=== PATIENT | female | born 1945 | race Caucasian/White ===

== ENCOUNTER 2021-03-28 15:04 | Inpatient (IN) | payer MEDICARE, OTHER ==
[2021-03-28] MEDS ORDERED: Nystatin Topical Powder 15 GM Bottle TOP PRN (16:09)
[2021-03-28] MEDS: Potassium Chloride 100 ML IV SCH (17:20)
[2021-03-28] MEDS: Lactated Ringers 1,000 ML IV SCH ×2 (17:20→23:37)
[2021-03-28] MEDS: Heparin Sodium 5,000 Units/ML Vial SUBCUT SCH (17:48)
[2021-03-28] MEDS: Potassium Chloride 10 MEQ Tab.ER PO SCH ×2 (17:50→20:45)
[2021-03-28] MEDS: rOPINIRole 1 MG Tab PO SCH ×2 (17:51→20:44)
[2021-03-28] MEDS: Carvedilol 6.25 MG Tab PO SCH (17:51)
[2021-03-28] MEDS: Ferrous Sulfate 325 MG Tab PO SCH (17:52)
[2021-03-28] MEDS: Gabapentin 100 MG Cap PO SCH (17:58)
--- NOTE | 2021-03-28 19:07 | HP ---
ADMISSION DATE: 03/28/2021 CHIEF COMPLAINT: Hypokalemia. HISTORY OF PRESENT ILLNESS: Ms. Martínez is a 76-year-old woman with history of mitral valvular heart disease, chronic seronegative inflammatory arthritis, gout, and ZENG. She has chronic lower extremity edema and has been treated with diuretics as an outpatient. This made her quite hypokalemic and in the office today, she was weak and had a potassium of 2.2. For this reason, she was sent over for acute admission and replenishment of her serum potassium. The patient denies any recent nausea, vomiting, diarrhea. She has had a low potassium before and has been on oral potassium pills. It is not clear how her compliance has been, however. PAST MEDICAL HISTORY: She has a history of mitral valve heart disease discovered first at the [facility] and followed with Cardiology in [place]. The last echocardiogram, November of 2020, showed normal left ventricular function with ejection fraction of 65%, moderate mitral regurg and stenosis and mild tricuspid regurgitation. She has a history of chronic anemia and recently underwent GI workup with negative EGD in February by Dr. Drew. She states she previously had negative colonoscopy. She is status post bilateral total knee arthroplasties, cholecystectomy. She is 3, para 3 with normal deliveries. MEDICATIONS: 1. Multiple vitamin 1 daily. 2. Iron 325 mg b.i.d. 3. Nystatin topical daily p.r.n. 4. Allopurinol 300 mg daily. 5. Aspirin 81 mg every 48 hours. 6. Carvedilol 6.25 mg b.i.d. 7. Lipitor 40 mg at bedtime. 8. Levothyroxine 150 mcg daily. 9. Furosemide 40 mg b.i.d. 10.Metolazone 2.5 mg Tuesdays and Fridays. 11.Omeprazole 40 mg daily. 12.Potassium 10 mEq q.i.d. 13.Oxybutynin 10 mg daily. 14.Requip 1 mg q.i.d. 15.Prednisone 2 mg daily. 16.Gabapentin 100 mg b.i.d. ALLERGIES: Cephalexin caused hives. HABITS: Nonsmoker and nondrinker. FAMILY AND SOCIAL HISTORY: The patient is since 1992. She lives at home with her son, Vikas, who is a quadriplegic. She also has additional care helping him out. 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 FAMILY MEDICAL HISTORY: The patient's father at age 65 of complications of diabetes. Mother lived to age 102. She has 1 brother in his 70s with diabetes and cancer. REVIEW OF SYSTEMS: GENERAL: No seizure, syncope, or recent significant weight change. PHYSICAL EXAMINATION: GENERAL: Weight at the clinic today was 204 pounds and back in June of 2020, she was 207 pounds. SKIN: Anicteric, warm, dry. She has deeply pigmented pereyra about her face and upper extremities. She also has bilateral upper extremity patches of vitiligo. She has been diagnosed with psoriasis in the past. I see no active areas. HEENT: Show TMs to be clear. Pupils are equal and reactive with bilateral arcus senilis. Oropharynx is clear with false teeth. Mouth dry. NECK: Supple. Thyroid is normal. Carotids are brisk without bruits. LUNGS: Clear to the bases. HEART: Regular with a 2/6 systolic murmur over the mitral area. ABDOMEN: Normal bowel sounds. Soft and nontender. No masses or organomegaly. EXTREMITIES: Show doughy thickening of both lower extremities with no pitting of her shins. She has intact pedal pulses. Motor exam appears symmetric. LABORATORY DATA: Done at the clinic today showed sodium 138, potassium 2.2, chloride 88, CO2 of 37. BUN 37, creatinine 1.13. AST 50, total bilirubin 4.2. ASSESSMENT: A 76-year-old woman with: 1. Severe hypokalemia. 2. Mild mitral valvular heart disease. 3. Chronic venous insufficiency with lower extremity edema. 4. Nonalcoholic steatohepatitis with rising liver enzymes. 5. History of gout. 6. Restless legs syndrome. 7. Pigmentation disorder. PLAN: We will follow routine labs, replace her potassium. Also plan CT abdomen because of the rising liver enzymes. I anticipate a 48- to 72-hour acute hospital stay followed by return to her home. We will provide palliative care measures for her underlying arthritic problems as well. /[id number] RO/MODL
[2021-03-28] MEDS: Aspirin 81 MG Tab.EC PO SCH (20:45)
[2021-03-28] MEDS: atorvaSTATin 40 MG Tab PO SCH (20:46)
[2021-03-28] MEDS ORDERED: Potassium Chloride 40 MEQ/20 ML SDV IV SCH (21:00)
[2021-03-29] MEDS: Heparin Sodium 5,000 Units/ML Vial SUBCUT SCH ×2 (06:40→17:03)
[2021-03-29] MEDS: Levothyroxine 150 MCG Tab PO SCH (06:40)
[2021-03-29] MEDS: Lactated Ringers 1,000 ML IV SCH ×2 (07:01→18:49)
[2021-03-29] MEDS: Ferrous Sulfate 325 MG Tab PO SCH ×2 (08:24→17:03)
[2021-03-29] MEDS: rOPINIRole 1 MG Tab PO SCH ×4 (08:25→20:36)
[2021-03-29] MEDS: Carvedilol 6.25 MG Tab PO SCH ×2 (08:25→17:00)
[2021-03-29] MEDS: Potassium Chloride 10 MEQ Tab.ER PO SCH ×4 (08:25→20:35)
[2021-03-29] MEDS: Oxybutynin 5 MG Tab.ER PO SCH (08:26)
[2021-03-29] MEDS: predniSONE 1 MG Tab PO SCH (08:26)
[2021-03-29] MEDS: Gabapentin 100 MG Cap PO SCH ×2 (08:28→17:06)
[2021-03-29] MEDS: Potassium Chloride 100 ML IV SCH ×3 (08:32→16:42)
[2021-03-29] MEDS ORDERED: Sulfamethoxazole/Trimethoprim 800-160 MG Tab PO SCH (09:00)
--- NOTE | 2021-03-29 10:22 | PN ---
DATE SEEN: 03/29/2021 HISTORY: Shima is a 76-year-old woman admitted from the clinic yesterday because of severe hypokalemia with potassium of 2.2. She was on diuretics for chronic peripheral edema, which is primarily venous stasis edema. Recent echocardiogram documented normal ventricular function. Laboratory studies showed her to have a hemoglobin of 11.1, MCV 102, potassium this morning up to 2.3 due to both oral and IV supplementation. PHYSICAL EXAMINATION: GENERAL: She is alert and comfortable this morning. HEENT: Mouth is dry. LUNGS: Have fine rales at the bases. HEART: Regular with a soft systolic murmur. ABDOMEN: Soft and nontender. EXTREMITIES: Showed thick doughy chronic changes of her legs. No significant pitting edema. LABORATORY DATA: Urinalysis showed hematuria. ASSESSMENT: 1. Severe hypokalemia secondary to diuretics. 2. Chronic venous stasis lower extremity edema. 3. History of inflammatory arthritis, seronegative. 4. History of gout. 5. Chronic mixed urinary incontinence. 6. Elevated liver enzymes. 7. Hematuria. PLAN: She will have CT of the abdomen and pelvis today to evaluate her elevated liver enzymes and her hematuria. We will continue her low-dose subcu heparin for DVT prophylaxis and continue to monitor platelets. I anticipate another 24 to 48 hours of acute hospital stay followed by return to home. /[id number] DELORIS/RENE
[2021-03-29] MEDS ORDERED: Iopamidol 755 Mg/ML 100 ML Bottle IV ONE (10:25)
[2021-03-29] MEDS ORDERED: cefTRIAXone 2 GM Vial IVPUSH SCH (12:00)
[2021-03-29] MEDS ORDERED: Azithromycin 500 MG Tab PO ONE (12:00)
--- NOTE | 2021-03-29 12:06 | CT ---
INDICATION: Elevated liver enzymes and hematuria. CT ABDOMEN AND PELVIS WITH CONTRAST: Spiral 3.75 mm axial sections were obtained through the abdomen and pelvis with 90 mL Isovue-370 at 2 mL/sec with sagittal and coronal reconstructions 03/29/21 and compared with 05/21/15. Total exam DLP was 930.79 milligray/cm. Bibasilar pleuroparenchymal changes are noted compatible with minimal bibasilar pneumonia and pleuritis. There may be some atelectasis also in those areas. The heart appears enlarged with mitral valvular/annular calcifications and some coronary artery calcifications suggested. No pericardial effusion was seen. The liver surface appears somewhat irregular. The liver density is heterogeneous in appearance raising question of cirrhosis of the liver. Enlarged spleen is noted measuring approximately 17 cm in maximum diameter and slightly increased in size compared with the previous examination. No definite focal liver or spleen mass was identified. The adrenal glands appeared normal. The kidneys appeared normal except to note impression on the left kidney by the enlarged spleen. The pancreas appeared normal except for what appears to be a cystic mass caudal to the distal body - tail of the pancreas and measuring approximately 19 mm. This may represent a pancreatic pseudocyst. It is visualized on multiple images including coronal image #39. The wall of the gastric antrum appears to be somewhat thickened raising question of peptic ulcer disease - correlate clinically. There remains a degree of fat stranding caudal to the cecum and extending mostly posteriorly, etiology is indeterminate. It may represent residua from previous peritonitis - correlate clinically. No definite bowel obstruction was identified. Arcuate artery, femoral, iliac, right renal, splenic, and aortic calcifications are noted. No evidence of abdominal aortic aneurysm was seen. No additional organomegaly, mass lesions, or free fluid collections were identified in the abdomen or pelvis. The urinary bladder was moderately distended and unremarkable otherwise. IMPRESSION: 1. Findings raise question of cirrhosis of the liver with splenomegaly noted. 2. ASD/ASHD. 3. Suggestion of thickening of the wall of the gastric antrum raising question of peptic ulcer disease - correlate clinically. 4. Peritoneal fat stranding in the paracolic gutter on the right inferior posterior to the cecum appears less prominent than on the previous study and may represent residua from previous peritonitis but should be correlated clinically. 5. Dextroconcave scoliosis thoracolumbar spine with somewhat progressive degenerative disc disease from L2 through S1. 6. Ventral hernia again noted and appears essentially unchanged at and below the level of the umbilicus. It is unchanged in size for the most part but does now have at its ostium a partial loop of transverse colon without obstruction. 7. Bibasilar pneumonia and pleuritis is noted. Report was called to Dr. Maldonado at 1134 hours 03/29/21. [facility]
[2021-03-29] MEDS: Piperacillin/Tazobactam 4.5 GM in Sodium Chloride 0.9% 100 ML IV SCH ×2 (12:13→18:49)
[2021-03-29] MEDS ORDERED: Azithromycin 500 MG in Sodium Chloride 0.9% 250 ML IV SCH (12:15)
[2021-03-29] MEDS: atorvaSTATin 40 MG Tab PO SCH (20:36)
[2021-03-30] MEDS: Piperacillin/Tazobactam 4.5 GM in Sodium Chloride 0.9% 100 ML IV SCH ×4 (00:23→17:43)
[2021-03-30] MEDS: Potassium Chloride 100 ML IV SCH ×2 (00:49→08:29)
[2021-03-30] MEDS: Sodium Chloride 0.9% 10 ML Syringe FLUSH PRN ×4 (00:50→12:09)
[2021-03-30] MEDS: Levothyroxine 150 MCG Tab PO SCH (05:50)
[2021-03-30] MEDS: Heparin Sodium 5,000 Units/ML Vial SUBCUT SCH ×2 (05:51→17:41)
[2021-03-30] MEDS ORDERED: Metolazone 2.5 MG Tab PO SCH (08:15)
[2021-03-30] MEDS: Carvedilol 6.25 MG Tab PO SCH ×2 (08:18→17:33)
[2021-03-30] MEDS: Ferrous Sulfate 325 MG Tab PO SCH ×2 (08:18→17:40)
[2021-03-30] MEDS: predniSONE 1 MG Tab PO SCH (08:20)
[2021-03-30] MEDS: rOPINIRole 1 MG Tab PO SCH ×4 (08:21→20:10)
[2021-03-30] MEDS: Potassium Chloride 20 MEQ Tab.ER PO SCH ×3 (08:25→20:10)
[2021-03-30] MEDS: Gabapentin 100 MG Cap PO SCH ×2 (08:25→18:03)
[2021-03-30] MEDS: Allopurinol 300 MG Tab PO SCH (08:26)
[2021-03-30] MEDS: Nystatin Topical Powder 15 GM Bottle TOP PRN (08:28)
[2021-03-30] MEDS: Furosemide 40 MG Tab PO SCH ×2 (10:04→14:26)
[2021-03-30] MEDS: Oxybutynin 5 MG Tab.ER PO SCH (10:05)
--- NOTE | 2021-03-30 11:22 | CR ---
INDICATION: Pneumonia. CHEST TWO VIEWS: PA and lateral views of the chest 03/30/21 were compared with 01/08/14 and 05/10/10. The heart appears to be somewhat increased in size but is emphasized by a slightly decreased inspiration. No specific chamber enlargement noted. The aorta is tortuous with calcification in the arch. Mild to moderate hypertrophic changes are noted in the mid to lower thoracic spine off vertebral bodies anteriorly. There is blunting of the left costophrenic angle with some increased density in that area - lower lobe on the left which may represent minimal pneumonia and pleuritis in that area. A very minimal pneumonia and pleuritis - less prominent than on the left - appears to be present now on the right with minimal blunting of the right costophrenic angle and possibly the posterior sulcus on the right also. However, no gross consolidating pneumonia or large effusion was seen. IMPRESSION: 1. Probable bibasilar pneumonia and pleuritis, left greater than right. 2. ASHD with mild cardiomegaly. 3. DJD spine. MTDD
[2021-03-30] MEDS: Azithromycin 250 MG Tab PO SCH (12:04)
--- NOTE | 2021-03-30 12:22 | PN ---
DATE SEEN: 03/30/2021 HISTORY: Ms. Martínez is a 76-year-old woman sent over from the clinic because of extreme hypokalemia. She had a history of longstanding chronic lower extremity edema and had been getting high dose of furosemide plus metolazone. She was mildly dehydrated on admission, weak, and fatigued. PAST SIGNIFICANT MEDICAL HISTORY: Includes mild valvular heart disease, but preserved ejection fraction at 65% with good ventricular function, a history of chronic anemia with negative GI workup, a history of seronegative inflammatory arthritis with gout, and a history of ZENG with cirrhosis, portal hypertension, and splenomegaly. The patient was admitted and started on IV potassium, supplementing her oral potassium. Her diuretics were held. Her initial weight was 176 pounds and she was febrile to 100.2 degrees. Urinalysis showed a UTI plus a hematuria. CT of the abdomen and pelvis was accomplished showing likely bibasilar pneumonia, the previous described cirrhosis with splenomegaly, benign-appearing pancreatic cyst, and unremarkable kidneys and bladder. Because of the pneumonia and urinary tract infection, she was started on antibiotics. She had an allergy to cephalexin, so Zosyn and azithromycin were chosen. She is examined this morning in her chair. She feels quite comfortable. She had a good night's sleep and she feels well. PHYSICAL EXAMINATION: VITAL SIGNS: Blood pressure 114/56, pulse 64 and regular, respirations 18, O2 sat 97% on room air, temp 97, weight 190 pounds. This sounds like her appropriate dry weight at home. MOUTH: Dry. LUNGS: Have fine rales at both bases. HEART: Regular without murmur or gallop. ABDOMEN: Soft and nontender. EXTREMITIES: Showed no significant edema at the ankles, but the chronic doughy thickened leg changes as before. LABORATORY DATA: White count 3000, hemoglobin 11.7, MCV 101. Sodium 137, potassium 3.2, BUN 24, creatinine 1.1. Total bilirubin 2.8, AST 46, ALT 20, alk phos 119, TSH 0.27, cortisol 9.2. ASSESSMENT: 1. Severe hypokalemia secondary to diuretics, improving. 2. Chronic peripheral edema, noncardiac, on long-term diuretic. 3. Nonalcoholic steatohepatitis with cirrhosis, portal hypertension, and splenomegaly. 4. Urinary tract infection. 5. Basilar infiltrate, possible pneumonia. 6. Seronegative inflammatory arthritis with history of gout. PLAN: She is currently on IV antibiotics. We will continue this through today and switch to p.o. antibiotic tomorrow. She is likely able to be discharged tomorrow. We will discontinue her IV potassium and continue the oral potassium supplementation. I will resume her furosemide at 40 mg daily. Her levothyroxine dose appears slightly high. I will not change this at this time. Plan, discharge within the next 24 to 48 hours. /[id number] DELORIS/RENE
[2021-03-30] MEDS: atorvaSTATin 40 MG Tab PO SCH (20:10)
[2021-03-30] MEDS: Aspirin 81 MG Tab.EC PO SCH (20:10)
[2021-03-31] MEDS: Levothyroxine 150 MCG Tab PO SCH (06:02)
[2021-03-31] MEDS: rOPINIRole 1 MG Tab PO SCH ×4 (08:16→20:42)
[2021-03-31] MEDS: Carvedilol 6.25 MG Tab PO SCH ×2 (08:17→18:10)
[2021-03-31] MEDS: Furosemide 40 MG Tab PO SCH ×2 (08:17→12:05)
[2021-03-31] MEDS: Allopurinol 300 MG Tab PO SCH (08:18)
[2021-03-31] MEDS: predniSONE 1 MG Tab PO SCH (08:20)
[2021-03-31] MEDS: Potassium Chloride 20 MEQ Tab.ER PO SCH ×3 (08:20→20:42)
[2021-03-31] MEDS: Oxybutynin 5 MG Tab.ER PO SCH (08:22)
[2021-03-31] MEDS: Ferrous Sulfate 325 MG Tab PO SCH ×2 (08:22→18:08)
[2021-03-31] MEDS: Gabapentin 100 MG Cap PO SCH ×2 (08:29→18:18)
[2021-03-31] MEDS: Heparin Sodium 5,000 Units/ML Vial SUBCUT SCH ×2 (08:57→18:09)
[2021-03-31] MEDS: Amoxicillin/Clavulanate K 875-125 MG Tab PO SCH ×2 (08:57→20:42)
[2021-03-31] MEDS: Nystatin Topical Powder 15 GM Bottle TOP PRN (09:50)
[2021-03-31] MEDS: Lactobacillus Rhamnosus GG (Probiotic) Cap PO SCH (10:44)
[2021-03-31] MEDS: Azithromycin 250 MG Tab PO SCH (12:05)
[2021-03-31] MEDS ORDERED: Potassium Chloride 20 MEQ Tab.ER PO ONE (14:00)
--- NOTE | 2021-03-31 14:22 | PCM.PN ---
- General Info Date of Service: 03/31/21 Subjective Update: Shima having loose stools since admission, switched from Zosyn to Augmentin. UC showed E. coli pansensitive. She states feels better. No chest pain, palpitations. No abdominal pain, nausea or vomiting. - Patient Data Vitals - Most Recent: Last Vital Signs Temp 97.9 F 03/31/21 08:00 Pulse 70 03/31/21 08:17 Resp 16 03/31/21 08:00 BP 104/69 03/31/21 08:17 Pulse Ox 96 03/31/21 08:00 Weight - Most Recent: 187 lb 1 oz I&O - Last 24 Hours: Intake & Output 03/30/21 03/31/21 03/31/21 22:59 06:59 14:59 Intake Total 200 Balance 200 Lab Results Last 24 Hours: Laboratory Results - last 24 hr 03/31/21 03/31/21 Range/Units 06:10 09:38 Sodium 139 (135-145) mmol/L Potassium 3.2 L (3.5-5.3) mmol/L Chloride 100 (100-110) mmol/L Carbon Dioxide 32 (21-32) mmol/L BUN 19 H (7-18) mg/dL Creatinine 1.2 H (0.55-1.02) mg/dL Est Cr Clr Drug Dosing 34.02 mL/min Estimated GFR (MDRD) 44 L (>60) BUN/Creatinine Ratio 15.8 (9-20) Glucose 196 H D (80-116) mg/dL Calcium 8.4 L (8.6-10.2) mg/dL Urine Color Yellow (YELLOW) Urine Appearance Clear (CLEAR) Urine pH 7.0 H (5.0-6.5) Ur Specific Leon 1.000 L (1.010-1.025) Urine Protein Negative (NEGATIVE) mg/dL Urine Glucose (UA) Normal (NORMAL) mg/dL Urine Ketones Negative (NEGATIVE) mg/dL Urine Occult Blood Negative (NEGATIVE) Urine Nitrite Negative (NEGATIVE) Urine Bilirubin Negative (NEGATIVE) Urine Urobilinogen 4 H (NEGATIVE) mg/dL Ur Leukocyte Esterase Negative (NEGATIVE) Urine RBC 0-5 (0-5) Urine WBC 0-5 (0-5) Ur Squamous Epith Cells Few H (NS,R,O) Urine Bacteria Few H (NS) Raymond Results Last 24 Hours: Microbiology 03/29/21 05:30 Urine Culture - Final Urine, Voided Escherichia Coli Med Orders - Current: Current Medications Allopurinol (Allopurinol 300 Mg Tab) 300 mg PO DAILY [facility] Last Admin: 03/31/21 08:18 Dose: 300 mg Documented by: Amoxicillin/Clavulanate Potassium (Amoxicillin/Clavulanate K 875-125 Mg Tab) 1 tab PO Q12H [facility] Last Admin: 03/31/21 08:57 Dose: 1 tab Documented by: Aspirin (Aspirin 81 Mg Tab.Ec) 81 mg PO Q48H [facility] Last Admin: 03/30/21 20:10 Dose: 81 mg Documented by: Atorvastatin Calcium (Atorvastatin 40 Mg Tab) 40 mg PO BEDTIME [facility] Last Admin: 03/30/21 20:10 Dose: 40 mg Documented by: Azithromycin (Azithromycin 250 Mg Tab) 250 mg PO DAILY@1200 [facility] Stop: 04/02/21 12:01 Last Admin: 03/31/21 12:05 Dose: 250 mg Documented by: Carvedilol (Carvedilol 6.25 Mg Tab) 6.25 mg PO BIDMEALS [facility] Last Admin: 03/31/21 08:17 Dose: 6.25 mg Documented by: Ferrous Sulfate (Ferrous Sulfate 325 Mg Tab) 325 mg PO BIDMEALS [facility] Last Admin: 03/31/21 08:22 Dose: 325 mg Documented by: Furosemide (Furosemide 40 Mg Tab) 40 mg PO DAILY@08,12 [facility] Last Admin: 03/31/21 12:05 Dose: 40 mg Documented by: Gabapentin (Gabapentin 100 Mg Cap) 100 mg PO BID@ [facility] Last Admin: 03/31/21 08:29 Dose: 100 mg Documented by: Heparin Sodium (Porcine) (Heparin Sodium 5,000 Units/Ml Vial) 5,000 units SUBCUT Q12H [facility] Last Admin: 03/31/21 08:57 Dose: 5,000 units Documented by: Lactobacillus Rhamnosus (Lactobacillus Rhamnosus Gg (Probiotic) Cap) 1 cap PO DAILY [facility] Last Admin: 03/31/21 10:44 Dose: 1 cap Documented by: Levothyroxine Sodium (Levothyroxine 150 Mcg Tab) 150 mcg PO DAILY@0600 [facility] Last Admin: 03/31/21 06:02 Dose: 150 mcg Documented by: Metolazone (Metolazone 2.5 Mg Tab) 2.5 mg PO TH [facility] Last Admin: 03/30/21 08:26 Dose: 2.5 mg Documented by: Nystatin (Nystatin Topical Powder 15 Gm Bottle) 0 gm TOP DAILY PRN PRN Reason: Rash Last Admin: 03/31/21 09:50 Dose: 1 applic Documented by: Oxybutynin Chloride (Oxybutynin 5 Mg Tab.Er) 10 mg PO DAILY [facility] Last Admin: 03/31/21 08:22 Dose: 10 mg Documented by: Potassium Chloride (Potassium Chloride 20 Meq Tab.Er) 20 meq PO TID [facility] Last Admin: 03/31/21 14:02 Dose: 20 meq Documented by: Prednisone (Prednisone 1 Mg Tab) 2 mg PO DAILY [facility] Last Admin: 03/31/21 08:20 Dose: 2 mg Documented by: Ropinirole HCl (Ropinirole 1 Mg Tab) 1 mg PO QID [facility] Last Admin: 03/31/21 12:24 Dose: 1 mg Documented by: Sodium Chloride (Sodium Chloride 0.9% 10 Ml Syringe) 10 ml FLUSH ASDIRECTED PRN PRN Reason: Keep Vein Open Last Admin: 03/30/21 12:09 Dose: 10 ml Documented by: Discontinued Medications Azithromycin (Azithromycin 500 Mg Tab) 500 mg PO ONETIME ONE Stop: 03/29/21 12:01 Last Admin: 03/29/21 12:13 Dose: 500 mg Documented by: Lactated Ringer's (Ringers, Lactated) 1,000 mls @ 75 mls/hr IV ASDIRECTED [facility] Last Admin: 03/29/21 18:49 Dose: 75 mls/hr Documented by: Potassium Chloride (Kcl In Water 20 Meq/100 Ml) 100 mls @ 50 mls/hr IV Q8H [facility] Stop: 03/30/21 12:00 Last Admin: 03/30/21 08:29 Dose: 50 mls/hr Documented by: Piperacillin Sod/Tazobactam (Sod 4.5 gm/ Sodium Chloride) 100 mls @ 200 mls/hr IV Q6H [facility] Stop: 03/30/21 23:59 Last Admin: 03/30/21 17:43 Dose: 200 mls/hr Documented by: Iopamidol (Iopamidol 755 Mg/Ml 100 Ml Bottle) 90 ml IV . DIRECTED ONE Stop: 03/29/21 10:26 Last Admin: 03/29/21 10:50 Dose: 90 ml Documented by: Nystatin (Nystatin Topical Powder 15 Gm Bottle) 0 gm TOP DAILY PRN PRN Reason: Rash Last Admin: 03/29/21 20:37 Dose: 1 applic Documented by: Potassium Chloride (Potassium Chloride 10 Meq Tab.Er) 10 meq PO QID [facility] Last Admin: 03/29/21 20:35 Dose: 10 meq Documented by: Potassium Chloride (Potassium Chloride 20 Meq Tab.Er) 20 meq PO ONETIME ONE Stop: 03/31/21 14:01 Last Admin: 03/31/21 14:01 Dose: 20 meq Documented by: Trimethoprim/Sulfamethoxazole (Sulfamethoxazole/Trimethoprim 800-160 Mg Tab) 1 tab PO BID [facility] Stop: 03/31/21 21:01 Last Admin: 03/29/21 08:25 Dose: 1 tab Documented by: - Exam General: Alert, Oriented, Cooperative Lungs: Clear to Auscultation, Normal Respiratory Effort, Decreased Breath Sounds (bases). No: Crackles Cardiovascular: Regular Rate, Regular Rhythm, No Murmurs GI/Abdominal Exam: Soft, Non-Tender, No Distention, Abnormal Bowel Sounds (hyperactive x4) Extremities: Pedal Edema (trace) Peripheral Pulses: 2+: Radial (L), Radial (R) - Patient Data Lab Results Last 24 hrs: Laboratory Results - last 24 hr 03/31/21 03/31/21 Range/Units 06:10 09:38 Sodium 139 (135-145) mmol/L Potassium 3.2 L (3.5-5.3) mmol/L Chloride 100 (100-110) mmol/L Carbon Dioxide 32 (21-32) mmol/L BUN 19 H (7-18) mg/dL Creatinine 1.2 H (0.55-1.02) mg/dL Est Cr Clr Drug Dosing 34.02 mL/min Estimated GFR (MDRD) 44 L (>60) BUN/Creatinine Ratio 15.8 (9-20) Glucose 196 H D (80-116) mg/dL Calcium 8.4 L (8.6-10.2) mg/dL Urine Color Yellow (YELLOW) Urine Appearance Clear (CLEAR) Urine pH 7.0 H (5.0-6.5) Ur Specific Leon 1.000 L (1.010-1.025) Urine Protein Negative (NEGATIVE) mg/dL Urine Glucose (UA) Normal (NORMAL) mg/dL Urine Ketones Negative (NEGATIVE) mg/dL Urine Occult Blood Negative (NEGATIVE) Urine Nitrite Negative (NEGATIVE) Urine Bilirubin Negative (NEGATIVE) Urine Urobilinogen 4 H (NEGATIVE) mg/dL Ur Leukocyte Esterase Negative (NEGATIVE) Urine RBC 0-5 (0-5) Urine WBC 0-5 (0-5) Ur Squamous Epith Cells Few H (NS,R,O) Urine Bacteria Few H (NS) Result Diagrams: 03/30/21 06:10 03/31/21 09:38 Raymond Results Last 24 hrs: Microbiology 03/29/21 05:30 Urine Culture - Final Urine, Voided Escherichia Coli Sepsis Event Note - Evaluation Sepsis Screening Result: No Definite Risk - Focused Exam Vital Signs: Vital Signs Temp Pulse Pulse Resp BP BP BP 03/31/21 08:17 70 104/69 03/31/21 08:00 97.9 F 70 16 104/69 03/31/21 02:30 97.9 F 65 16 110/53 L Pulse Ox 03/31/21 08:17 03/31/21 08:00 96 03/31/21 02:30 95 - Problem List & Annotations (1) UTI (urinary tract infection) SNOMED Code(s): 10523019 Code(s): N39.0 - URINARY TRACT INFECTION, SITE NOT SPECIFIED Status: Acute Current Visit: Yes Qualifiers: Urinary tract infection type: acute cystitis (2) Hypokalemia SNOMED Code(s): 92873740 Code(s): E87.6 - HYPOKALEMIA Status: Acute Current Visit: Yes (3) Edema, peripheral SNOMED Code(s): 963461490 Code(s): R60.9 - EDEMA, UNSPECIFIED Status: Acute Current Visit: Yes (4) Pulmonary infiltrates SNOMED Code(s): 011937947 Code(s): R91.8 - OTHER NONSPECIFIC ABNORMAL FINDING OF LUNG FIELD Status: Acute Current Visit: Yes (5) Nonalcoholic steatohepatitis (ZENG) SNOMED Code(s): 893795920 Code(s): K75.81 - NONALCOHOLIC STEATOHEPATITIS (ZENG) Status: Chronic Current Visit: Yes (6) Seronegative arthritis SNOMED Code(s): 771155655 Code(s): M13.80 - OTHER SPECIFIED ARTHRITIS, UNSPECIFIED SITE Status: Chronic Current Visit: Yes (7) 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 UTI/bibasilar infiltrates: Zosyn x 6 doses, switched to Augmentin 875/125 mg today. Azithromycin 250 mg x 3 doses so far. UC grew E. coli pansensitive, allergy to Cephalexin(rash). She has been tolerating the Zosyn since admission. Has 2 more doses of Azithromycin and would need 6 doses of Augmentin to complete antibiotic course. 2. Hypokalemia: repeat 3.2 today, already getting KCL 20mEQ tid, add onetime dose of 20 mEQ this afternoon. Repeat BMP in am. Check magnesium on blood draw from am. Metolazone changed to 2.5 mg weekly on , received yesterday. 3. Antibiotic-associated diarrhea: Probiotics bid. 4. Anticipate discharge tomorrow.
[2021-03-31] MEDS: atorvaSTATin 40 MG Tab PO SCH (20:42)
[2021-03-31] MEDS ORDERED: Magnesium Oxide 400 MG Tab PO SCH (21:00)
[2021-04-01] MEDS: Heparin Sodium 5,000 Units/ML Vial SUBCUT SCH (05:42)
[2021-04-01] MEDS: Levothyroxine 150 MCG Tab PO SCH (05:42)
[2021-04-01 08:38] VITALS: BP 122/55; PULSE 64
[2021-04-01] MEDS: Oxybutynin 5 MG Tab.ER PO SCH (08:40)
[2021-04-01] MEDS: predniSONE 1 MG Tab PO SCH (08:40)
[2021-04-01] MEDS: Allopurinol 300 MG Tab PO SCH (08:40)
[2021-04-01] MEDS: Furosemide 40 MG Tab PO SCH (08:41)
[2021-04-01] MEDS: Potassium Chloride 20 MEQ Tab.ER PO SCH (08:41)
[2021-04-01] MEDS: Lactobacillus Rhamnosus GG (Probiotic) Cap PO SCH (08:41)
[2021-04-01] MEDS: Amoxicillin/Clavulanate K 875-125 MG Tab PO SCH (08:42)
[2021-04-01] MEDS: Nystatin Topical Powder 15 GM Bottle TOP PRN (08:42)
[2021-04-01] MEDS: Carvedilol 6.25 MG Tab PO SCH (08:43)
[2021-04-01] MEDS: Ferrous Sulfate 325 MG Tab PO SCH (08:43)
[2021-04-01] MEDS: rOPINIRole 1 MG Tab PO SCH (08:44)
[2021-04-01] MEDS: Gabapentin 100 MG Cap PO SCH (08:47)
[2021-04-01] MEDS: Azithromycin 250 MG Tab PO SCH (11:57)
--- NOTE | 2021-04-01 15:30 | PCM.DCSUM1 ---
Discharge Summary - Hospital Course HPI Initial Comments: Shima was direct admission from clinic for hypokalemia 2.2, and weakness. She is on chronic diuretics for chronic peripheral edema. History of ZENG with cirrhosis and splenomegaly. No nausea, vomiting or diarrhea on admission. History of moderate mitral valve stenosis/regurgitation. Nov 2020 ECHO EF 65%. Takes potassium 10 mEq qid normally at home, on Lasix 40 mg daily & metolazone 2.5 MWF. See H&P for further details. Diagnosis: Stroke: No - Discharge Data Discharge Date: 04/01/21 Discharge Disposition: Home, Self-Care 01 Condition: Good - Referral to Home Health Primary Care Physician: Fawad Freed MD - Discharge Diagnosis/Problem(s) (1) UTI (urinary tract infection) SNOMED Code(s): 18870431 ICD Code: N39.0 - URINARY TRACT INFECTION, SITE NOT SPECIFIED Status: Acute Current Visit: Yes Qualifiers: Urinary tract infection type: acute cystitis (2) Hypokalemia SNOMED Code(s): 63754233 ICD Code: E87.6 - HYPOKALEMIA Status: Acute Current Visit: Yes (3) Edema, peripheral SNOMED Code(s): 153020262 ICD Code: R60.9 - EDEMA, UNSPECIFIED Status: Acute Current Visit: Yes (4) Pulmonary infiltrates SNOMED Code(s): 991514194 ICD Code: R91.8 - OTHER NONSPECIFIC ABNORMAL FINDING OF LUNG FIELD Status: Acute Current Visit: Yes (5) Nonalcoholic steatohepatitis (ZENG) SNOMED Code(s): 573758543 ICD Code: K75.81 - NONALCOHOLIC STEATOHEPATITIS (ZENG) Status: Chronic Current Visit: Yes (6) Seronegative arthritis SNOMED Code(s): 404760230 ICD Code: M13.80 - OTHER SPECIFIED ARTHRITIS, UNSPECIFIED SITE Status: Chronic Current Visit: Yes (7) 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 UTI on admission, initially started on Bactrim x [address] abdomen/pelvis showed bibasilar pneumonia with previous cirrhosis with splenomegaly, benign appearing pancreatic cyst. Started on Zosyn x 6 doses, Azithromycin 500 mg x 1 dose then 250 mg x 3 doses for bibasilar pneumonia. Mild dehydration on admission, given IV fluids until 03/29 and Lasix restarted on 03/30. Metolazone 2.5 mg changed to weekly dosing on , received dose on 03/30. Urine culture grew E. coli, pansensitive. Has Cephalexin allergy which was rash. She was switched to Augmentin on 03/31, started having diarrhea, secondary to antibiotics. Probiotics started, Potassium dropped to 3.0. Magnesium 1.6, magnesium 400 mg x 1 given. Diarrhea improved at discharge. Increased home dose of potassium 20 mEq qid for next 2 days, recheck on Saturday and Dr Freed may adjust as needed. - Patient Instructions Diet: Usual Diet as Tolerated Activity: As Tolerated Driving: May Drive Today Showering/Bathing: May Shower Notify Provider of: Fever, Increased Pain, Nausea and/or Vomiting Other/Special Instructions: Increase your potassium dose to 2 tab 4 times a day for next 2 days(Sat/Sun) then go back to your usual home dose. Follow up with Dr Freed on Saturday for hospital recheck and to recheck your potassium level. Take antibiotics as prescribed until finished. - Discharge Plan *PRESCRIPTION DRUG MONITORING PROGRAM REVIEWED*: Not Applicable *COPY OF PRESCRIPTION DRUG MONITORING REPORT IN PATIENT VASYL: Not Applicable Prescriptions/Med Rec: Amoxicillin/Clavulanate K [Augmentin 875-125 MG] 1 tab PO Q12H 2 Days #4 tablet Lactobacillus Rhamnosus GG [Culturelle] 1 cap PO BID 2 Days #4 cap Azithromycin [Zithromax] 250 mg PO DAILY@1200 2 Days #2 tablet Home Medications: Home Meds Levothyroxine 150 mcg PO ACBREAKFAST 03/02/15 [History] Furosemide 40 mg PO DAILY@08,12 08/11/15 [History] Aspirin [Halfprin] 81 mg PO Q48H 03/28/21 [History] Ferrous Sulfate 325 mg PO BIDMEALS 03/28/21 [History] Gabapentin [Neurontin] 100 mg PO BID@,18 03/28/21 [History] Multivitamin [Daily [place]] 1 tab PO DAILY 03/28/21 [History] Nystatin 1 applic TOP DAILY PRN 03/28/21 [History] Omeprazole 40 mg PO DAILY 03/28/21 [History] Oxybutynin Chloride [Ditropan Xl] 10 mg PO DAILY 03/28/21 [History] allopurinoL [Zyloprim] 300 mg PO DAILY 03/28/21 [History] atorvaSTATin [Lipitor] 40 mg PO BEDTIME 03/28/21 [History] carvediloL [Coreg] 6.25 mg PO BIDMEALS 03/28/21 [History] predniSONE [Prednisone] 2 mg PO DAILY 03/28/21 [History] rOPINIRole [Requip] 1 mg PO QID 03/28/21 [History] Amoxicillin/Clavulanate K [Augmentin 875-125 MG] 1 tab PO Q12H 2 Days #4 tablet 04/01/21 [Rx] Azithromycin [Zithromax] 250 mg PO DAILY@1200 2 Days #2 tablet 04/01/21 [Rx] Lactobacillus Rhamnosus GG [Culturelle] 1 cap PO BID 2 Days #4 cap 04/01/21 [Rx] Potassium Chloride 10 meq PO QID #0 04/01/21 [Rx] metOLazone [Zaroxolyn] 2.5 mg PO TH #0 tablet 04/01/21 [Rx] Patient Handouts: Heart Failure, Self Care, [id number], How to Use an Incentive Spirometer, Hypokalemia, Fall Prevention in Hospitals, Adult, Venous Thromboembolism Prevention Referrals: Fawad Freed MD [Primary Care Provider] - - Discharge Summary/Plan Comment DC Time >30 min.: No - General Info Date of Service: 04/01/21 Subjective Update: Shima states feeling better, diarrhea is improving mostly soft not as loose. Feels stronger. No shortness of breath or chest pain. No nausea, vomiting. Edema is about the same. - Patient Data Vitals - Most Recent: Last Vital Signs Temp 97.9 F 04/01/21 08:00 Pulse 64 04/01/21 08:43 Resp 16 04/01/21 08:00 BP 122/55 L 04/01/21 08:43 Pulse Ox 96 04/01/21 08:00 Weight - Most Recent: 187 lb 8 oz Lab Results - Last 24 hrs: Laboratory Results - last 24 hr 03/31/21 04/01/21 Range/Units 09:38 06:15 Sodium 139 (135-145) mmol/L Potassium 3.0 L (3.5-5.3) mmol/L Chloride 100 (100-110) mmol/L Carbon Dioxide 33 H (21-32) mmol/L BUN 18 (7-18) mg/dL Creatinine 1.0 (0.55-1.02) mg/dL Est Cr Clr Drug Dosing 40.83 mL/min Estimated GFR (MDRD) 54 L (>60) BUN/Creatinine Ratio 18.0 (9-20) Glucose 93 D (80-116) mg/dL Calcium 8.1 L (8.6-10.2) mg/dL Magnesium 1.6 L (1.8-2.5) mg/dL Med Orders - Current: Current Medications Discontinued Medications Allopurinol (Allopurinol 300 Mg Tab) 300 mg PO DAILY [facility] Last Admin: 04/01/21 08:40 Dose: 300 mg Documented by: Amoxicillin/Clavulanate Potassium (Amoxicillin/Clavulanate K 875-125 Mg Tab) 1 tab PO Q12H [facility] Last Admin: 04/01/21 08:42 Dose: 1 tab Documented by: Aspirin (Aspirin 81 Mg Tab.Ec) 81 mg PO Q48H [facility] Last Admin: 03/30/21 20:10 Dose: 81 mg Documented by: Atorvastatin Calcium (Atorvastatin 40 Mg Tab) 40 mg PO BEDTIME [facility] Last Admin: 03/31/21 20:42 Dose: 40 mg Documented by: Azithromycin (Azithromycin 500 Mg Tab) 500 mg PO ONETIME ONE Stop: 03/29/21 12:01 Last Admin: 03/29/21 12:13 Dose: 500 mg Documented by: Azithromycin (Azithromycin 250 Mg Tab) 250 mg PO DAILY@1200 [facility] Stop: 04/02/21 12:01 Last Admin: 04/01/21 11:57 Dose: 250 mg Documented by: Carvedilol (Carvedilol 6.25 Mg Tab) 6.25 mg PO BIDMEALS [facility] Last Admin: 04/01/21 08:43 Dose: 6.25 mg Documented by: Ferrous Sulfate (Ferrous Sulfate 325 Mg Tab) 325 mg PO BIDMEALS [facility] Last Admin: 04/01/21 08:43 Dose: 325 mg Documented by: Furosemide (Furosemide 40 Mg Tab) 40 mg PO DAILY@,12 [facility] Last Admin: 04/01/21 08:41 Dose: 40 mg Documented by: Gabapentin (Gabapentin 100 Mg Cap) 100 mg PO BID@ [facility] Last Admin: 04/01/21 08:47 Dose: 100 mg Documented by: Heparin Sodium (Porcine) (Heparin Sodium 5,000 Units/Ml Vial) 5,000 units SUBCUT Q12H [facility] Last Admin: 04/01/21 05:42 Dose: 5,000 units Documented by: Lactated Ringer's (Ringers, Lactated) 1,000 mls @ 75 mls/hr IV ASDIRECTED [facility] Last Admin: 03/29/21 18:49 Dose: 75 mls/hr Documented by: Potassium Chloride (Kcl In Water 20 Meq/100 Ml) 100 mls @ 50 mls/hr IV Q8H [facility] Stop: 03/30/21 12:00 Last Admin: 03/30/21 08:29 Dose: 50 mls/hr Documented by: Piperacillin Sod/Tazobactam (Sod 4.5 gm/ Sodium Chloride) 100 mls @ 200 mls/hr IV Q6H [facility] Stop: 03/30/21 23:59 Last Admin: 03/30/21 17:43 Dose: 200 mls/hr Documented by: Iopamidol (Iopamidol 755 Mg/Ml 100 Ml Bottle) 90 ml IV . DIRECTED ONE Stop: 03/29/21 10:26 Last Admin: 03/29/21 10:50 Dose: 90 ml Documented by: Lactobacillus Rhamnosus (Lactobacillus Rhamnosus Gg (Probiotic) Cap) 1 cap PO DAILY [facility] Last Admin: 04/01/21 08:41 Dose: 1 cap Documented by: Levothyroxine Sodium (Levothyroxine 150 Mcg Tab) 150 mcg PO DAILY@0600 [facility] Last Admin: 04/01/21 05:42 Dose: 150 mcg Documented by: Magnesium Oxide (Magnesium Oxide 400 Mg Tab) 400 mg PO BEDTIME [facility] Last Admin: 03/31/21 20:42 Dose: 400 mg Documented by: Metolazone (Metolazone 2.5 Mg Tab) 2.5 mg PO TH [facility] Last Admin: 03/30/21 08:26 Dose: 2.5 mg Documented by: Nystatin (Nystatin Topical Powder 15 Gm Bottle) 0 gm TOP DAILY PRN PRN Reason: Rash Last Admin: 03/29/21 20:37 Dose: 1 applic Documented by: Nystatin (Nystatin Topical Powder 15 Gm Bottle) 0 gm TOP DAILY PRN PRN Reason: Rash Last Admin: 04/01/21 08:42 Dose: 1 applic Documented by: Oxybutynin Chloride (Oxybutynin 5 Mg Tab.Er) 10 mg PO DAILY [facility] Last Admin: 04/01/21 08:40 Dose: 10 mg Documented by: Potassium Chloride (Potassium Chloride 10 Meq Tab.Er) 10 meq PO QID [facility] Last Admin: 03/29/21 20:35 Dose: 10 meq Documented by: Potassium Chloride (Potassium Chloride 20 Meq Tab.Er) 20 meq PO TID [facility] Last Admin: 04/01/21 08:41 Dose: 20 meq Documented by: Potassium Chloride (Potassium Chloride 20 Meq Tab.Er) 20 meq PO ONETIME ONE Stop: 03/31/21 14:01 Last Admin: 03/31/21 14:01 Dose: 20 meq Documented by: Prednisone (Prednisone 1 Mg Tab) 2 mg PO DAILY [facility] Last Admin: 04/01/21 08:40 Dose: 2 mg Documented by: Ropinirole HCl (Ropinirole 1 Mg Tab) 1 mg PO QID [facility] Last Admin: 04/01/21 08:44 Dose: 1 mg Documented by: Sodium Chloride (Sodium Chloride 0.9% 10 Ml Syringe) 10 ml FLUSH ASDIRECTED PRN PRN Reason: Keep Vein Open Last Admin: 03/30/21 12:09 Dose: 10 ml Documented by: Trimethoprim/Sulfamethoxazole (Sulfamethoxazole/Trimethoprim 800-160 Mg Tab) 1 tab PO BID [facility] Stop: 03/31/21 21:01 Last Admin: 03/29/21 08:25 Dose: 1 tab Documented by: - Exam General: Reports: Alert, Oriented, Cooperative, No Acute Distress Lungs: Reports: Clear to Auscultation, Normal Respiratory Effort, Decreased Breath Sounds (bibasilar), Crackles (occasional bibasilar). Denies: Wheezing Cardiovascular: Reports: Regular Rate, Regular Rhythm, Murmurs GI/Abdominal Exam: Normal Bowel Sounds, Soft, Non-Tender, No Distention Extremities: Pedal Edema (2+ BLE)
== END 2021-04-01 12:05 | disposition home or self-care (01) | DRG 640 ==
LOC: FB.MS 15:29
PROVIDERS: ADMIT Family Medicine; ATTEND Family Medicine
DX: E87.6 Hypokalemia (principal); J18.9 Pneumonia, unspecified organism; N30.00 Acute cystitis without hematuria; K52.1 Toxic gastroenteritis and colitis; K76.6 Portal hypertension; K75.81 Nonalcoholic steatohepatitis (NASH); M13.80 Other specified arthritis, unspecified site; K74.60 Unspecified cirrhosis of liver; I87.2 Venous insufficiency (chronic) (peripheral); G25.81 Restless legs syndrome; L81.9 Disorder of pigmentation, unspecified; I08.1 Rheumatic disorders of both mitral and tricuspid valves; B96.20 Unspecified Escherichia coli [E. coli] as the cause of diseases classified elsewhere; D64.9 Anemia, unspecified; T36.95XA Adverse effect of unspecified systemic antibiotic, initial encounter; Z90.49 Acquired absence of other specified parts of digestive tract; Z88.1 Allergy status to other antibiotic agents; Z79.890 Hormone replacement therapy; Z79.82 Long term (current) use of aspirin; Z79.899 Other long term (current) drug therapy
CPT/HCPCS: 36415; 71046; 74177; 80048; 80053; 81001; 82533; 82607; 83735; 84443; 85025; 87086; 87088; 87186; 94150; A9270-GY; J1644; J2543; J3480; J7120; J7512; Q9967

== ENCOUNTER 2021-06-29 21:39 | Emergency (ER) | payer MEDICARE, OTHER ==
[2021-06-29] MEDS ORDERED: Potassium Chloride 20 MEQ Tab.ER PO STA (22:15)
--- NOTE | 2021-06-29 22:19 | EDM.PDOC ---
ED HPI GENERAL MEDICAL PROBLEM - General Chief Complaint: General Stated Complaint: POSS LOW POTASSIUM Time Seen by Provider: 06/29/21 21:55 Source of Information: Reports: Patient History Limitations: Reports: No Limitations - History of Present Illness INITIAL COMMENTS - FREE TEXT/NARRATIVE: Patient presented to the ED ecause she is not feeling right which started at about 1130 today. When I asked her what she meant she can't elaborate. Per old MR she was here sometime in March with hypokalemia and hypomagnesemia. She denies having any palpitations, chest pain, N/V/D. - Related Data Allergies Allergy/AdvReac Type Severity Reaction Status Date / Time cephalexin [Cephalexin] Allergy Hives Verified 06/30/21 00:58 Home Meds: Home Meds Levothyroxine 150 mcg PO ACBREAKFAST 03/02/15 [History] Furosemide 40 mg PO DAILY@08,12 08/11/15 [History] Aspirin [Halfprin] 81 mg PO Q48H 03/28/21 [History] Ferrous Sulfate 325 mg PO BIDMEALS 03/28/21 [History] Multivitamin with Folic Acid [Daily-Sharon Tablet] 1 tab PO DAILY 03/28/21 [History] Omeprazole 40 mg PO DAILY 03/28/21 [History] Oxybutynin Chloride [Ditropan Xl] 10 mg PO DAILY 03/28/21 [History] allopurinoL [Zyloprim] 300 mg PO DAILY 03/28/21 [History] atorvaSTATin [Lipitor] 40 mg PO BEDTIME 03/28/21 [History] carvediloL [Coreg] 6.25 mg PO BIDMEALS 03/28/21 [History] rOPINIRole [Requip] 1 mg PO QID 03/28/21 [History] Magnesium Oxide 400 mg PO BID #15 tab 06/29/21 [Rx] Potassium Chloride 20 meq PO TID 06/30/21 [History] Spironolactone 50 mg PO MOWEFR 06/30/21 [History] metOLazone [Metolazone] 2.5 mg PO MOWEFR 06/30/21 [History] Past Medical History HEENT History: Reports: Cataract, Epistaxis, Impaired Vision Cardiovascular History: Reports: Heart Failure, Heart Murmur, Hypertension, SOB on Exertion, Other (See Below) Other Cardiovascular History: HR IRREGULAR. Respiratory History: Reports: SOB Other Respiratory History: CURRENTLY. 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 ANKLES GOUT HISTORY. Endocrine/Metabolic History: Reports: Hypokalemia, Hypothyroidism, Obesity/BMI 30+ Hematologic History: Reports: Anemia, Blood Transfusion(s) Other Hematologic History: IN PAST HAD BLOOD WITH NO REACTIONS. 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 NO NAME FOR THIS. HAS HAD FOR YEARS. - Infectious Disease History Infectious Disease History: Reports: Chicken Pox, Measles - Past Surgical History HEENT Surgical History: Reports: Cataract Surgery Cardiovascular Surgical History: Reports: None Respiratory Surgical History: Reports: None GI Surgical History: Reports: Cholecystectomy, Colonoscopy, EGD Endocrine Surgical History: Reports: None Musculoskeletal Surgical History: Reports: Knee Replacement, Other (See Below) Other Musculoskeletal Surgeries/Procedures:: BOTH DONE Dermatological Surgical History: Reports: None Social & Family History - Family History Family Medical History: Unobtainable - Caffeine Use Caffeine Use: Reports: Coffee ED ROS GENERAL - Review of Systems Review Of Systems: See Below Constitutional: Reports: No Symptoms HEENT: Reports: No Symptoms Respiratory: Reports: No Symptoms Cardiovascular: Reports: No Symptoms Endocrine: Reports: No Symptoms GI/Abdominal: Reports: No Symptoms : Reports: No Symptoms Musculoskeletal: Reports: No Symptoms Skin: Reports: No Symptoms Neurological: Reports: No Symptoms Psychiatric: Reports: No Symptoms ED EXAM, GENERAL - Physical Exam Exam: See Below Exam Limited By: No Limitations General Appearance: Alert, No Apparent Distress Eye Exam: Bilateral Eye: PERRL Ears: Normal External Exam, Normal Canal Nose: Normal Inspection, Normal Mucosa, No Blood Throat/Mouth: Normal Inspection, Normal Lips, Normal Teeth Head: Atraumatic, Normocephalic Neck: Normal Inspection, Supple, Non-Tender, Full Range of Motion Respiratory/Chest: No Respiratory Distress, Lungs Clear, Normal Breath Sounds, No Accessory Muscle Use, Chest Non-Tender Cardiovascular: Normal Peripheral Pulses, Regular Rate, Rhythm, No Edema, No Gallop, No JVD, No Murmur, No Rub GI/Abdominal: Normal Bowel Sounds, Soft, Non-Tender, No Organomegaly, No Distention, No Abnormal Bruit, No Mass Back Exam: Normal Inspection, Full Range of Motion Extremities: Normal Inspection, Normal Range of Motion, Non-Tender, No Pedal Edema, Normal Capillary Refill Neurological: Alert, Oriented, CN II-XII Intact, Normal Cognition Course - Vital Signs Text/Narrative:: Lba result was reviewed and discussed with patient Klor con 40 meq PO x1 Last Recorded V/S: Last Vital Signs Temp 37.1 C 06/29/21 21:50 Pulse 109 H 06/29/21 21:50 Resp 18 06/29/21 21:50 BP 133/70 06/29/21 21:50 Pulse Ox 96 06/29/21 21:50 - Orders/Labs/Meds Labs: Laboratory Tests 06/29/21 06/29/21 Range/Units 22:00 22:00 WBC 5.9 (3.0-10.3) x10-3/uL RBC 3.56 L (3.60-5.20) x10(6)uL Hgb 11.6 (11.4-15.5) g/dL Hct 34.8 (34.2-48.2) % MCV 97.8 (76.7-100.5) fL MCH 32.6 (23.9-33.9) pg MCHC 33.3 (31.9-34.8) g/dL RDW 14.4 (12.3-16.5) % Plt Count 133 L (151-488) x10(3)uL MPV 6.9 L (7.1-12.4) fL Neut % (Auto) 67.9 (30.8-76.2) % Lymph % (Auto) 23.4 (18.4-52.1) % [place] % (Auto) 4.7 (4.4-15.7) % Eos % (Auto) 3.0 (0.6-8.1) % Baso % (Auto) 1.0 (0.2-1.5) % Neut # (Auto) 4.0 (1.5-6.3) x10-3/uL Lymph # (Auto) 1.4 (1.0-4.4) x10-3/uL [place] # (Auto) 0.3 (0.3-1.0) x10-3/uL Eos # (Auto) 0.2 (0.0-0.8) x10-3/uL Baso # (Auto) 0.1 (0.0-0.1) x10-3/uL Sodium 138 (135-145) mmol/L Potassium 3.1 L (3.5-5.3) mmol/L Chloride 98 L (100-110) mmol/L Carbon Dioxide 34 H (21-32) mmol/L BUN 19 H (7-18) mg/dL Creatinine 1.1 H (0.55-1.02) mg/dL Est Cr Clr Drug Dosing TNP Estimated GFR (MDRD) 49 L (>60) BUN/Creatinine Ratio 17.3 (9-20) Glucose 116 (80-116) mg/dL Calcium 8.3 L (8.6-10.2) mg/dL Magnesium 1.7 L (1.8-2.5) mg/dL Meds: Medications Discontinued Medications Generic Name Dose Route Start Last Admin Trade Name Papiq PRN Reason Stop Dose Admin Potassium Chloride 40 meq 06/29/21 22:15 06/29/21 22:25 Potassium Chloride 20 Meq Tab.Er PO 06/29/21 22:16 40 meq NOW STA Administration Departure - Departure Time of Disposition: 22:20 Disposition: Home, Self-Care 01 Condition: Good Clinical Impression: Hypokalemia, Hypomagnesemia - Discharge Information Prescriptions: Magnesium Oxide 400 mg PO BID #15 tab Instructions: Hypomagnesemia, Hypokalemia Referrals: Fawad Freed MD [Primary Care Provider] - Forms: ED Department Discharge Additional Instructions: Please read discharge instructions on low potassium and low magnesium Magnesium oxide 400 mg twice daily for 7 days Call me @ [phone] and tell me the dose of potassium that you are taking so I know ho much potassium to give you Follow up as needed Sepsis Event Note (ED) - Focused Exam Vital Signs: Vital Signs Temp Pulse Resp BP Pulse Ox 06/29/21 21:50 37.1 C 109 H 18 133/70 96
[2021-06-30 00:57] VITALS: BP 133/70; PULSE 109
== END 2021-06-29 22:35 | disposition home or self-care (01) ==
LOC: FB.ED 21:39
DX: E87.6 Hypokalemia (principal); E83.42 Hypomagnesemia; I11.0 Hypertensive heart disease with heart failure; I50.9 Heart failure, unspecified; M10.9 Gout, unspecified; Z88.1 Allergy status to other antibiotic agents; Z79.82 Long term (current) use of aspirin; Z79.899 Other long term (current) drug therapy
CPT/HCPCS: 36415; 80048; 83735; 85025; 99284; A9270

== ENCOUNTER 2021-10-01 11:24 | Emergency (ER) | payer MEDICARE, OTHER ==
--- NOTE | 2021-10-01 12:08 | EDM.PDOC ---
ED HPI GENERAL MEDICAL PROBLEM - General Stated Complaint: RT FOOT SWOLLEN Time Seen by Provider: 10/01/21 11:45 Source of Information: Reports: Patient, Family - History of Present Illness INITIAL COMMENTS - FREE TEXT/NARRATIVE: Family of 76-year-old lady brought her to the emergency department because of increased pain, swelling in the right lower extremity and because of significant weakness/malaise. She is a very poor historian. Her past medical history is significant for peripheral vascular disease and comorbidities related. She has had an ulcer on the plantar surface of her right great toe which has been treated by her primary care physician and podiatry for several weeks. Last month she was placed on doxycycline and has had some debridements but continues to have pain, swelling. She has chronic lymphedema in the bilateral lower extremities, right greater than left. She does not have chest pain or shortness of breath today but she does have significant weakness and malaise. She states that she has been more incontinent than normal. Family states that this weakness and incontinence has been worse in the past when she has hypokalemia. - Related Data Allergies Allergy/AdvReac Type Severity Reaction Status Date / Time cephalexin [Cephalexin] Allergy Hives Verified 06/30/21 00:58 Home Meds: Home Meds Levothyroxine 150 mcg PO ACBREAKFAST 03/02/15 [History] Furosemide 40 mg PO DAILY@08,12 08/11/15 [History] Aspirin [Halfprin] 81 mg PO Q48H 03/28/21 [History] Ferrous Sulfate 325 mg PO BIDMEALS 03/28/21 [History] Multivitamin with Folic Acid [Daily-Sharon Tablet] 1 tab PO DAILY 03/28/21 [History] Omeprazole 40 mg PO DAILY 03/28/21 [History] Oxybutynin Chloride [Ditropan Xl] 10 mg PO DAILY 03/28/21 [History] allopurinoL [Zyloprim] 300 mg PO DAILY 03/28/21 [History] atorvaSTATin [Lipitor] 40 mg PO BEDTIME 03/28/21 [History] carvediloL [Coreg] 6.25 mg PO BIDMEALS 03/28/21 [History] rOPINIRole [Requip] 1 mg PO QID 03/28/21 [History] Magnesium Oxide 400 mg PO BID #15 tab 06/29/21 [Rx] Potassium Chloride 20 meq PO TID 06/30/21 [History] Spironolactone 50 mg PO MOWEFR 06/30/21 [History] metOLazone [Metolazone] 2.5 mg PO MOWEFR 06/30/21 [History] Past Medical History HEENT History: Reports: Cataract, Epistaxis, Impaired Vision Cardiovascular History: Reports: Heart Failure, Heart Murmur, Hypertension, SOB on Exertion, Other (See Below) Other Cardiovascular History: HR IRREGULAR. Respiratory History: Reports: SOB Other Respiratory History: CURRENTLY. 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 ANKLES GOUT HISTORY. Endocrine/Metabolic History: Reports: Hypokalemia, Hypomagnesemia, Hypothyroidism, Obesity/BMI 30+ Hematologic History: Reports: Anemia, Blood Transfusion(s) Other Hematologic History: IN PAST HAD BLOOD WITH NO REACTIONS. 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 NO NAME FOR THIS. HAS HAD FOR YEARS. - Infectious Disease History Infectious Disease History: Reports: Chicken Pox, Measles - Past Surgical History HEENT Surgical History: Reports: Cataract Surgery Cardiovascular Surgical History: Reports: None Respiratory Surgical History: Reports: None GI Surgical History: Reports: Cholecystectomy, Colonoscopy, EGD Endocrine Surgical History: Reports: None Musculoskeletal Surgical History: Reports: Knee Replacement, Other (See Below) Other Musculoskeletal Surgeries/Procedures:: BOTH DONE Dermatological Surgical History: Reports: None Social & Family History - Family History Family Medical History: Unobtainable - Caffeine Use Caffeine Use: Reports: None ED ROS GENERAL - Review of Systems Review Of Systems: See Below Constitutional: Reports: Chills, Malaise, Weakness HEENT: Reports: No Symptoms Respiratory: Reports: No Symptoms Cardiovascular: Reports: No Symptoms Endocrine: Reports: No Symptoms GI/Abdominal: Reports: No Symptoms : Reports: No Symptoms Musculoskeletal: Reports: Leg Pain, Foot Pain, Joint Swelling, Muscle Pain Skin: Reports: Rash, Erythema, Wound, Change in Color, Lesions Neurological: Reports: Difficulty Walking, Weakness Psychiatric: Reports: Anxiety Hematologic/Lymphatic: Reports: No Symptoms Immunologic: Reports: No Symptoms ED EXAM, GENERAL - Physical Exam Exam: See Below Exam Limited By: No Limitations General Appearance: Mild Distress Head: Atraumatic, Normocephalic Respiratory/Chest: Decreased Breath Sounds, Crackles Cardiovascular: Systolic Murmur Extremities: Pedal Edema, Leg Pain, Increased Warmth, Redness, Other (Wound dressed on right great toe, significant erythema, edema, calor extending to above the knee on the right) Neurological: Alert, Slow to Respond Psychiatric: Anxious Skin Exam: Ecchymosis, Erythema, Increased Warmth, Lymphangitis, Rash Course - Vital Signs Text/Narrative:: Patient's presentation and lab work are consistent with sepsis. Patient is alert and oriented. She does have a mild acute kidney injury but there is otherwise no end-organ damage. With consultation with infectious disease I started Zosyn on the patient renally dosed. We are giving the Zosyn slowly to ensure there are no adverse side effects. Patient did have a previously listed rash with cephalosporin. However there was no indication in the medical history that she had had an adverse reaction to penicillins and/or Zosyn/Augmentin in the past. She was also started on vancomycin. Initial lactic acid is 3.8. Patient is given second liter of normal saline at this time. Patient was also found to have mild hypokalemia hypomagnesemia. We gave the patient 40 mg of potassium chloride p.o. and 2 g of magnesium IV. Last Recorded V/S: Last Vital Signs Temp 37.7 C 10/01/21 12:00 Pulse 87 10/01/21 12:00 Resp 16 10/01/21 12:00 BP 137/72 10/01/21 12:00 Pulse Ox 99 10/01/21 12:00 - Orders/Labs/Meds Orders: Active Orders 24 hr Category Date Time Status Foot Comp Min 3V Rt [CR] Stat Exams 10/01/21 12:01 Taken CULTURE BLOOD [BC] Urgent Lab 10/01/21 12:15 Received CULTURE BLOOD [BC] Urgent Lab 10/01/21 12:20 Received REFLEX LACTIC ACID YES OR NO [CHEM] Routine Lab 10/01/21 14:11 Received Piperacillin/Tazobactam [Zosyn] 2.25 gm Med 10/01/21 14:00 Active Sodium Chloride 0.9% [Normal Saline] 50 ml IV Q6H Blood Culture x2 Reflex Set [OM.PC] Urgent Oth 10/01/21 11:55 Ordered Medication Orders Piperacillin Sod/Tazobactam (Sod 2.25 gm/ Sodium Chloride) 50 mls @ 100 mls/hr IV Q6H MAGI Labs: Laboratory Tests 10/01/21 10/01/21 10/01/21 Range/Units 12:15 12:15 12:15 WBC 13.3 H (3.0-10.3) x10-3/uL RBC 3.71 (3.60-5.20) x10(6)uL Hgb 12.3 (11.4-15.5) g/dL Hct 37.1 (34.2-48.2) % MCV 99.9 (76.7-100.5) fL MCH 33.2 (23.9-33.9) pg MCHC 33.2 (31.9-34.8) g/dL RDW 15.2 (12.3-16.5) % Plt Count 100 L (151-488) x10(3)uL MPV 7.0 L (7.1-12.4) fL Add Manual Diff Yes Neutrophils % (Manual) 91 H (46-82) % Lymphocytes % (Manual) 5 L (13-37) % Monocytes % (Manual) 4 (4-12) % Sodium 136 (135-145) mmol/L Potassium 3.1 L (3.5-5.3) mmol/L Chloride 98 L (100-110) mmol/L Carbon Dioxide 29 (21-32) mmol/L BUN 28 H (7-18) mg/dL Creatinine 1.5 H (0.55-1.02) mg/dL Est Cr Clr Drug Dosing TNP Estimated GFR (MDRD) 34 L (>60) BUN/Creatinine Ratio 18.7 (9-20) Glucose 140 H (80-116) mg/dL Lactic Acid (0.4-2.0) mmol/L Uric Acid 7.6 H (3.5-7.2) mg/dL Calcium 8.6 (8.6-10.2) mg/dL Magnesium 1.7 L (1.8-2.5) mg/dL Total Bilirubin 5.1 H (0.1-1.3) mg/dL AST 64 H D (5-25) IU/L ALT 25 D (12-36) U/L Alkaline Phosphatase 130 H (56-112) IU/L Total Protein 7.9 (6.0-8.0) g/dL Albumin 2.6 L (3.2-4.6) g/dL Globulin 5.3 g/dL Albumin/Globulin Ratio 0.5 SARS-CoV-2 RNA (DEYVI) (NEGATIVE) 10/01/21 10/01/21 Range/Units 12:20 13:40 WBC (3.0-10.3) x10-3/uL RBC (3.60-5.20) x10(6)uL Hgb (11.4-15.5) g/dL Hct (34.2-48.2) % MCV (76.7-100.5) fL MCH (23.9-33.9) pg MCHC (31.9-34.8) g/dL RDW (12.3-16.5) % Plt Count (151-488) x10(3)uL MPV (7.1-12.4) fL Add Manual Diff Neutrophils % (Manual) (46-82) % Lymphocytes % (Manual) (13-37) % Monocytes % (Manual) (4-12) % Sodium (135-145) mmol/L Potassium (3.5-5.3) mmol/L Chloride (100-110) mmol/L Carbon Dioxide (21-32) mmol/L BUN (7-18) mg/dL Creatinine (0.55-1.02) mg/dL Est Cr Clr Drug Dosing Estimated GFR (MDRD) (>60) BUN/Creatinine Ratio (9-20) Glucose (80-116) mg/dL Lactic Acid 3.8 H* (0.4-2.0) mmol/L Uric Acid (3.5-7.2) mg/dL Calcium (8.6-10.2) mg/dL Magnesium (1.8-2.5) mg/dL Total Bilirubin (0.1-1.3) mg/dL AST (5-25) IU/L ALT (12-36) U/L Alkaline Phosphatase (56-112) IU/L Total Protein (6.0-8.0) g/dL Albumin (3.2-4.6) g/dL Globulin g/dL Albumin/Globulin Ratio SARS-CoV-2 RNA (DEYVI) Negative (NEGATIVE) Meds: Medications Generic Name Dose Route Start Last Admin Trade Name Freq PRN Reason Stop Dose Admin Piperacillin Sod/Tazobactam 50 mls @ 100 mls/hr 10/01/21 14:00 Sod 2.25 gm/ Sodium Chloride IV Q6H MGAI Discontinued Medications Generic Name Dose Route Start Last Admin Trade Name Freq PRN Reason Stop Dose Admin Vancomycin HCl 2 gm/ Premix 400 mls @ 200 mls/hr 10/01/21 13:43 10/01/21 14:00 IV 10/01/21 15:42 200 mls/hr STAT ONE Administration Sodium Chloride 1,000 mls @ 999 mls/hr 10/01/21 13:44 10/01/21 14:01 Normal Saline IV 10/01/21 14:44 999 mls/hr .BOLUS ONE Administration Magnesium Sulfate 2 gm/ Premix 50 mls @ 25 mls/hr 10/01/21 13:45 10/01/21 14:54 IV 10/01/21 15:44 25 mls/hr ONETIME ONE Administration Potassium Chloride 40 meq 10/01/21 13:45 10/01/21 14:00 Potassium Chloride 20 Meq Tab.Er PO 10/01/21 13:46 40 meq ONETIME ONE Administration Departure - Departure Time of Disposition: 16:21 Disposition: DC/Tfer to Acute Hospital 02 Condition: Fair Clinical Impression: Cellulitis and abscess of foot excluding toe, NERY (acute kidney injury), Hypokalemia, Hypomagnesemia, Hypokalemia - Discharge Information *PRESCRIPTION DRUG MONITORING PROGRAM REVIEWED*: Not Applicable *COPY OF PRESCRIPTION DRUG MONITORING REPORT IN PATIENT VASYL: Not Applicable Sepsis Event Note (ED) - Focused Exam Vital Signs: Vital Signs Temp Pulse Resp BP Pulse Ox 10/01/21 12:00 37.7 C 87 16 137/72 99 - My Orders Last 24 Hours: My Active Orders 10/01/21 11:55 Blood Culture x2 Reflex Set [OM.PC] Urgent 10/01/21 12:01 Foot Comp Min 3V Rt [CR] Stat 10/01/21 12:15 CULTURE BLOOD [BC] Urgent 10/01/21 12:20 CULTURE BLOOD [BC] Urgent 10/01/21 14:00 Piperacillin/Tazobactam [Zosyn] 2.25 gm Sodium Chloride 0.9% [Normal Saline] 50 ml IV Q6H 10/01/21 14:11 REFLEX LACTIC ACID YES OR NO [CHEM] Routine - Assessment/Plan Last 24 Hours: My Active Orders 10/01/21 11:55 Blood Culture x2 Reflex Set [OM.PC] Urgent 10/01/21 12:01 Foot Comp Min 3V Rt [CR] Stat 10/01/21 12:15 CULTURE BLOOD [BC] Urgent 10/01/21 12:20 CULTURE BLOOD [BC] Urgent 10/01/21 14:00 Piperacillin/Tazobactam [Zosyn] 2.25 gm Sodium Chloride 0.9% [Normal Saline] 50 ml IV Q6H 10/01/21 14:11 REFLEX LACTIC ACID YES OR NO [CHEM] Routine
[2021-10-01 13:35] VITALS: BP 137/72; PULSE 87
[2021-10-01] MEDS ORDERED: VANCOmycin 2 GM/400 ML 2 GM in Premix Bag 1 BAG IV ONE (13:43)
[2021-10-01] MEDS ORDERED: Sodium Chloride 0.9% 1,000 ML IV ONE ×2 (13:44→16:20)
[2021-10-01] MEDS ORDERED: Magnesium Sulfate/Water 2 GM in Premix Bag 1 BAG IV ONE (13:45)
[2021-10-01] MEDS ORDERED: Potassium Chloride 20 MEQ Tab.ER PO ONE (13:45)
[2021-10-01] MEDS ORDERED: Piperacillin/Tazobactam 2.25 GM in Sodium Chloride 0.9% 50 ML IV SCH (14:00)
[2021-10-01] MEDS ORDERED: Acetaminophen 500 MG Tab ONE (16:22)
[2021-10-01] MEDS ORDERED: Acetaminophen 500 MG Tab PO ONE (16:29)
== END 2021-10-01 16:50 ==
LOC: FB.ED 11:24
DX: L03.115 Cellulitis of right lower limb (principal); L02.415 Cutaneous abscess of right lower limb; N17.9 Acute kidney failure, unspecified; E87.6 Hypokalemia; E83.42 Hypomagnesemia; I11.0 Hypertensive heart disease with heart failure; I50.9 Heart failure, unspecified; M10.9 Gout, unspecified; E66.9 Obesity, unspecified; Z68.31 Body mass index [BMI] 31.0-31.9, adult; Z88.1 Allergy status to other antibiotic agents; Z79.899 Other long term (current) drug therapy; Z79.82 Long term (current) use of aspirin; Z20.822 Contact with and (suspected) exposure to COVID-19
CPT/HCPCS: 36415; 73630; 80053; 83605; 83735; 84550; 85025; 87040; 96365; 96366; 96367; 96368; 99285; A9270; J2543; J3370; J3475; J7030; U0002

== ENCOUNTER 2021-11-09 16:01 | Emergency (ER) | payer MEDICARE, OTHER ==
[2021-11-09] MEDS ORDERED: Potassium Chloride 10 MEQ Tab.ER PO ONE (16:02)
[2021-11-09] MEDS ORDERED: Sodium Chloride 0.9% 10 ML Syringe FLUSH PRN (16:21)
[2021-11-09] MEDS ORDERED: Sodium Chloride 0.9% 1,000 ML IV SCH ×2 (17:00→18:45)
[2021-11-09] MEDS ORDERED: Potassium Chloride 20 MEQ Tab.ER PO STA (18:25)
[2021-11-09 19:57] VITALS: BP 164/81; PULSE 81
== END 2021-11-09 20:15 | disposition home or self-care (01) ==
LOC: FB.ED 16:01
DX: E87.6 Hypokalemia (principal); E86.0 Dehydration; M10.9 Gout, unspecified; I11.0 Hypertensive heart disease with heart failure; I50.9 Heart failure, unspecified; Z88.1 Allergy status to other antibiotic agents; Z79.899 Other long term (current) drug therapy
CPT/HCPCS: 36415; 80053; 83735; 84443; 85025; 99284; A9270; J7030

== ENCOUNTER 2021-11-16 19:08 | Emergency (ER) | payer MEDICARE, OTHER ==
[2021-11-16 20:12] VITALS: BP 142/71; PULSE 82
== END 2021-11-16 21:07 | disposition home or self-care (01) ==
LOC: FB.ED 19:08
DX: R04.0 Epistaxis (principal); K74.60 Unspecified cirrhosis of liver; D69.6 Thrombocytopenia, unspecified; I11.0 Hypertensive heart disease with heart failure; I50.9 Heart failure, unspecified; M10.9 Gout, unspecified; Z88.1 Allergy status to other antibiotic agents; Z79.899 Other long term (current) drug therapy
CPT/HCPCS: 36415; 80048; 85025; 99283

== ENCOUNTER 2021-11-30 12:07 | Emergency (ER) | payer MEDICARE, OTHER ==
[2021-11-30] MEDS ORDERED: Sodium Chloride 0.9% 10 ML Syringe FLUSH PRN (12:23)
[2021-11-30] MEDS: Sodium Chloride 0.9% 500 ML IV ONE ×2 (12:50→15:22)
[2021-11-30 13:36] VITALS: BP 160/68; PULSE 73
[2021-11-30] MEDS: Sodium Chloride 0.9% 1,000 ML IV ONE (13:51)
[2021-11-30] MEDS: Bisacodyl 10 MG Supp RECTAL ONE (16:55)
[2021-11-30] MEDS: Bisacodyl 10 MG Supp ONE (18:19)
== END 2021-11-30 18:15 ==
LOC: FB.ED 12:07
DX: K74.60 Unspecified cirrhosis of liver (principal); K75.81 Nonalcoholic steatohepatitis (NASH); R53.1 Weakness; I11.0 Hypertensive heart disease with heart failure; I50.9 Heart failure, unspecified; M10.9 Gout, unspecified; E03.9 Hypothyroidism, unspecified; M19.90 Unspecified osteoarthritis, unspecified site; Z88.1 Allergy status to other antibiotic agents; Z79.899 Other long term (current) drug therapy; Z20.822 Contact with and (suspected) exposure to COVID-19
CPT/HCPCS: 36415; 70450; 80053; 81001; 82140; 83605; 83735; 84443; 84484; 85025; 85610; 85730; 87040; 93005; 99285; A9270; J7030; J7040; U0002; 93010